=== PATIENT | female | born 1965 | race Caucasian/White ===

== ENCOUNTER → 2017-05-02 | Day surgery (SDC) | payer OTHER ==
[~2017-05-02] VITALS: Ht 167.6 cm; Wt 83.9 kg
[2017-05-02 11:50] LABS: ABSOLUTE BASOPHIL COUNT 0 /CUMM (0.0-0.2); ABSOLUTE EOSINOPHIL COUNT 0.3 /CUMM (0.0-0.7); ABSOLUTE GRANULOCYTE CT 4.7 /CUMM (1.4-6.5); ABSOLUTE LYMPH COUNT 1.8 /CUMM (1.2-3.4); ABSOLUTE MONOCYTE COUNT 0.6 /CUMM (0.10-0.60); BASOPHIL % 0.6 % (0.0-2.0); EOSINOPHIL % 3.8 % (0-5); GRANULOCYTE % 63.3 % (42.2-75.2); MEAN CORPUSCULAR VOLUME 91.1 FL (81.0-99.0); MEAN PLATELET VOLUME 8.9 FL (7.4-10.4); PLATELET COUNT 198 /CUMM (130-400); RBC DISTRIBUTION WIDTH 12.9 % (11.5-14.5); RED BLOOD CELL CT 4.49 /CUMM (4.20-5.40); WHITE BLOOD CELL COUNT 7.4 /CUMM (4.8-10.8)
--- NOTE | 2017-05-02 13:43 | Operative Report ---
Operative/Inv Procedure Report Surgery Date: 05/02/17 Name of Procedure: Endometrial ablation D&C hysteroscopy Pre-Operative Diagnosis: Menorrhagia Post-Operative Diagnosis: Menorrhagia Estimated Blood Loss: scant Surgeon/Key Account Manager: Yves GREEN,Travon Love Anesthesia: laryngeal mask airway Specimens: Endometrial curette Complications: None Condition: Good Operative/Procedure Note Note: The patient was brought to the operating room placed in dorsal supine position a timeout was done with the patient awake. After the induction of anesthesia second timeout was done patient was placed in low stirrups examination under anesthesia was performed a speculum was placed in the vagina 8cc of 1%lidocaine with epinepherine was injected circumfrentially into the cervix, the anterior lip of the cervix was grasped with a single-tooth tenaculum. The endocervical canal was dilated and a hysteroscope was introduced noting normal findings photos were taken. This was followed by a sharp curettage OF the endometrial cavity which was sent to pathology for examination the uterus was sounded to 10 cm the cervix was measured to be 5 cm the NovaSure device was therefore set 5 cm the NovaSure device was seated the width of the endometrial canal was noted to be 4.5 cm after testing for integrity A58 second treatment cycle was undertaken there were no complications single-tooth tenaculum was removed and the patient was moved to recovery in good condition sponge instrument and needle counts were correct 3
== END ==
LOC: STS 03:04
PROVIDERS: Obstetrics & Gynecology
DX: N92.0 Excessive and frequent menstruation with regular cycle (principal); N39.3 Stress incontinence (female) (male)
CPT/HCPCS: 36415; 81025; J1100; J2250; J2405